=== PATIENT | female | born 1975 | race Caucasian/White ===

== ENCOUNTER 2023-04-14 15:25 | Emergency (ER) | payer SELFPAY ==
[~2023-04-14] VITALS: Ht 157 cm; Wt 61.0 kg
[~2023-04-14 15:25] MED LIST: CIPR500T78 PO; HYDR-757 PO; SULF-222 PO
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
[2023-04-14 16:05] VITALS: BP 136/94
== END 2023-04-14 16:14 | disposition home or self-care (01) ==
LOC: EDUNIT# 15:25 → ER 15:26
DX: S30.811A Abrasion of abdominal wall, initial encounter (principal); F32.A Depression, unspecified; Z79.899 Other long term (current) drug therapy; V49.40XA Driver injured in collision with unspecified motor vehicles in traffic accident, initial encounter; Y92.410 Unspecified street and highway as the place of occurrence of the external cause
CPT/HCPCS: 99283